=== PATIENT | female | born 1995 | race Caucasian/White ===

== ENCOUNTER 2016-08-15 22:07 | Emergency (ER) | payer OTHER ==
[~2016-08-15] VITALS: Ht 170.2 cm; Wt 84.0 kg
[2016-08-15 22:09] VITALS: BP 137/77; PULSE 84; RESP 14; TEMP 98.2; O2SAT 100
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
[2016-08-15] MEDS ORDERED: CEPH-460 PO (22:53)
[2016-08-19 19:53] LABS: MUMPS IGG AB 3.74 (())
[2016-08-20 17:55] LABS: MUMPS IGM AB <1:20 (())
== END 2016-08-15 23:13 | disposition home or self-care (01) ==
LOC: NEPB 22:07
DX: K11.21 Acute sialoadenitis (principal)
CPT/HCPCS: 86735; 99283